=== PATIENT | male | born 1990 | race Two or more races ===

== ENCOUNTER 2018-12-15 00:20 | Emergency (ER) | payer SELFPAY ==
[~2018-12-15] VITALS: Ht 165.1 cm; Wt 68.0 kg
[2018-12-15 01:30] VITALS: BP 115/71
[2018-12-15] MEDS ORDERED: AMOX500C PO (01:38)
[2018-12-15] MEDS ORDERED: HYDR-2761 PO (01:38)
[2018-12-15] MEDS ORDERED: KETOROLAC 30 MG/ML VIAL. IV ONE (02:00)
--- NOTE | 2018-12-15 02:46 | RAD ---
PA and lateral chest radiographs 12/15/2018 Clinical History: Chest pain. PA and lateral digital radiographs of the chest were obtained. No previous studies are available for comparison. The cardiac and mediastinal silhouettes are within normal limits in size and configuration. No pulmonary infiltrate is seen. No pleural effusion or pneumothorax is noted. The osseous structures are grossly intact. Impression: No acute abnormality is seen. Electronically signed by: Angus Lantigua MD (12/15/2018 2:43 AM) [facility]
--- NOTE | 2018-12-15 05:17 | PHYS DOC ---
Past Medical History Past Medical History: Bipolar, Depression, Other Additional Past Medical Histor: TBI Alcohol Use: Occasionally Drug Use: None Adult General Chief Complaint Chief Complaint: CHEST PAIN HPI HPI Patient is a 28 year old male presents with right parasternal chest wall, chest wall tenderness starting 3 hours prior to arrival. Chest wall tender to palpation and worse with deep breathing. No fever chills, nausea vomiting, sweats or cough. Denies sore throat. No back pain, flank pain, rash. No leg pain or swelling. No other acute symptoms or complaints. Nonsmoker. [] Review of Systems Review of Systems Review of symptoms as per history of present illness. All other systems were reviewed and found to be within normal limits, except as documented in this note. Current Medications Current Medications Current Medications Medications (Trade) Dose Ordered Sig/Princess Start Time Stop Time Status Last Admin Dose Admin Ketorolac Tromethamine (Toradol 30mg Vial) 30 mg 1X ONCE 12/15/18 02:00 12/15/18 02:01 DC 12/15/18 01:32 30 MG Allergies Allergies Allergies Coded Allergies Type Severity Reaction Last Updated Verified No Known Drug Allergies 12/15/18 No Physical Exam Physical Exam Constitutional: Well developed, well nourished, no acute distress, non-toxic appearance. [] HENT: Normocephalic, atraumatic, bilateral external ears normal, oropharynx moist, no oral exudates, nose normal. [] Eyes: PERRLA, EOMI, conjunctiva normal, no discharge. [] Neck: Normal range of motion, no tenderness, supple, no stridor. [] Cardiovascular:Heart rate regular rhythm, no murmur [] Lungs & Thorax: Bilateral breath sounds clear to auscultation, right parasternal chest wall pain, tenderness to palpation. [] Abdomen: Bowel sounds normal, soft, no tenderness. [] Skin: Warm, dry, no erythema, no rash. [] Back: No tenderness, no CVA tenderness. [] Extremities: No tenderness, no cyanosis, no clubbing, ROM intact, no edema. [] Neurologic: Alert and oriented X 3, normal motor function, normal sensory function, no focal deficits noted. [] Psychologic: Affect normal, judgement normal, mood normal. [] Current Patient Data Vital Signs Vital Signs Date Time Temp Pulse Resp B/P (MAP) Pulse Ox O2 Delivery O2 Flow Rate FiO2 7/18/19 01:30 56 17 115/71 (86) 97 Room Air 12/15/18 00:25 98.5 98.5 EKG EKG [: Normal sinus rhythm, no acute ST-T wave changes, QTC normal.] Radiology/Procedures Radiology/Procedures [X-ray: ? perihilar infiltrates.] Course & Med Decision Making Course & Med Decision Making Pertinent Labs and Imaging studies reviewed. (See chart for details) [Symptoms consistent with costochondritiis. Antibiotics,, pain medication prescribed recommend] Dragon Disclaimer Dragon Disclaimer This electronic medical record was generated, in whole or in part, using a voice recognition dictation system. Departure Departure Impression: Primary Impression: Pneumonitis Additional Impression: Pleurisy Disposition: HOME, SELF-CARE Condition: GOOD Patient Instructions: Costochondritis, [id number], Pneumonitis Additional Instructions: Please take newly prescribed medications as directed and follow-up with local PCP in 2-3 days for reevaluation. Return to the ED if new or worsening symptoms. Scripts Hydrocodone Bit/Acetaminophen (HYDROCODONE-APAP 5-325 ) 1 Tab Tablet 1 TAB PO PRN Q6HRS PRN for PAIN for 3 Days, #10 TAB 0 Refills Prov: KRZYSZTOF FARNSWORTH DO 12/15/18 Amoxicillin (AMOXICILLIN) 500 Mg Capsule 1 CAP PO QID, #40 CAP Prov: KRZYSZTOF FARNSWORTH DO 12/15/18 Problem Qualifiers KRZYSZTOF FARNSWORTH DO Dec 15, 2018 05:17
--- NOTE | 2018-12-15 07:38 | EKG ---
[facility] [address] [place] [address] Test Date: 2018-12-15 Test Time: 00:27:55 Pat Name: MICHAEL BEY Department: Room: Gender: M [employer] Associate: : [id number] Requested By: KRZYSZTOF FARNSWORTH Order Number: [id number] Reading MD: Measurements Intervals Siler Rate: 63 P: 61 LA: 128 QRS: 62 QRSD: 74 T: 42 QT: 394 QTc: 406 Interpretive Statements SINUS RHYTHM NO SPECIFIC ECG ABNORMALITIES RI6.01 No previous ECG available for comparison
== END 2018-12-15 01:57 | disposition home or self-care (01) ==
LOC: ER 00:20
DX: J18.9 Pneumonia, unspecified organism (principal); R09.1 Pleurisy; F31.9 Bipolar disorder, unspecified
CPT/HCPCS: 71046; 93005; 96374; 99284; J1885